=== PATIENT | female | born 2000 | race Caucasian/White ===

== ENCOUNTER 2021-02-19 10:25 | Outpatient (CLI) | payer BC ==
[2021-02-19 11:02] LABS: Basophils % (Auto) 0.5 % (0.0-1.8); Eosinophils # (Auto) 0.1 K/mm3 (0.0-0.4); Eosinophils % (Auto) 1.3 % (0.0-4.3); Hematocrit 38.7 % (30.3-42.9); Hemoglobin 12.6 gm/dl (10.1-14.3); Lymphocytes # (Auto) 2.2 K/mm3 (1.2-5.4); Lymphocytes % (Auto) 27.1 % (13.4-35.0); Mean Corpuscular HGB Conc 32 % (30-34); Mean Corpuscular Volume 81 fl (79-97); Monocytes # (Auto) 0.5 K/mm3 (0.0-0.8); Monocytes % (Auto) 6.2 % (0.0-7.3); Platelet Count 272 K/mm3 (140-440); Red Cell Distribution Width 15.1 % (13.2-15.2)
[2021-02-19 11:16] LABS: Alanine Aminotransferase 18 units/L (7-56); Albumin 4.4 g/dL (3.9-5); Blood Urea Nitrogen 9 mg/dL (7-17); Calcium 9.4 mg/dL (8.4-10.2); Chol/HDL Ratio 3.06 %; HDL Cholesterol 43 mg/dL (40-59); Hemolysis Index 15; LDL Cholesterol,Direct 90 mg/dL (50-130)
[2021-02-19 11:22] LABS: BUN/Creatinine Ratio 23
== END 2021-02-19 10:26 | disposition home or self-care (01) ==
LOC: LAB 10:25
PROVIDERS: ATTEND Internal Medicine
DX: Z00.00 Encounter for general adult medical examination without abnormal findings (principal); Z13.1 Encounter for screening for diabetes mellitus; Z13.29 Encounter for screening for other suspected endocrine disorder; E55.9 Vitamin D deficiency, unspecified; R53.82 Chronic fatigue, unspecified
CPT/HCPCS: 36415; 80053; 80061; 82306; 82607; 83036; 84443; 85025